=== PATIENT | male | born 1995 | race Caucasian/White ===

== ENCOUNTER 2017-02-16 16:27 | Emergency (ER) | payer MEDICAID ==
[2017-02-16 17:03] VITALS: TEMP 98.8
--- NOTE | 2017-02-16 17:46 | RAD ---
HISTORY: Detox/Psy COMPARISON: None available. TECHNIQUE: Chest, one view. FINDINGS: Examination limited by habitus and hypoinflation. The patient's chin obscures evaluation of the lung apices. LUNGS: No focal consolidation. Please note that chest x-ray has limited sensitivity for the detection of pulmonary masses. PLEURA: No significant pleural effusion identified. No definite pneumothorax . CARDIOVASCULAR: Cardiomegaly, likely exaggerated by hypoinflation. OSSEOUS STRUCTURES: No acute osseous abnormality identified. VISUALIZED UPPER ABDOMEN: Elevation of the right hemidiaphragm. OTHER FINDINGS: None. IMPRESSION: Cardiomegaly, likely exaggerated by hypoinflation.
[2017-02-16 18:02] LABS: RBC URINE 6 /hpf (0-3); URINE BACTERIA RARE (<OCC); URINE BILIRUBIN NEGATIVE (NEGATIVE); URINE BLOOD NEGATIVE (NEGATIVE); URINE COLOR Yellow (YELLOW); URINE GLUCOSE (UA) NORMAL (Normal); URINE KETONE NEGATIVE (NEGATIVE); URINE LEUKOCYTE ESTERASE NEG Leu/uL (Negative); URINE PROTEIN NEGATIVE (NEGATIVE); URINE UROBILINOGEN NORMAL mg/dL (0.2-1.0); WBC URINE 1 /hpf (0-5)
[2017-02-16 18:05] LABS: BASO # 0.1 K/uL (0.0-0.2); BASO % 0.5 % (0.0-2.0); EOS # 0.7 K/uL (0.0-0.7); EOS % 6.9 % (0.0-4.0); HEMATOCRIT 43.8 % (35.0-51.0); LYMPH # 2.6 K/uL (1.0-4.3); LYMPH % 24.6 % (20.0-40.0); MEAN CELL VOLUME 92.2 fL (80.0-94.0); MEAN CORPUSCULAR HEMOGLOBIN 31.5 pg (27.0-31.0); MEAN CORPUSCULAR HGB CONC 34.1 g/dL (33.0-37.0); MEAN PLATELET VOLUME 8.4 fL (7.2-11.7); MONO # 0.9 K/uL (0.0-0.8); MONO % 8.7 % (0.0-10.0); RED CELL DISTRIBUTION WIDTH 13.6 % (11.5-14.5); WHITE BLOOD COUNT 10.6 K/uL (4.8-10.8)
[2017-02-16 18:28] LABS: CHLORIDE 101 mmol/L (98-107)
[2017-02-16 18:29] LABS: POTASSIUM 3.5 mmol/L (3.6-5.2); SODIUM 140 mmol/L (132-148)
[2017-02-16 18:31] LABS: ALB/GLOB RATIO 1.3 (1.0-2.1); ALKALINE PHOSPHATASE 97 U/L (38-126); AST/SGOT 44 U/L (17-59); BILIRUBIN,TOTAL 0.5 mg/dL (0.2-1.3); BLOOD UREA NITROGEN 18 mg/dL (9-20); CARBON DIOXIDE 23 mmol/L (22-30); GFR AFRICAN-AMERICAN > 60; TOTAL PROTEIN 7.5 g/dL (6.3-8.3)
[2017-02-16 18:32] LABS: ALCOHOL SERUM < 10 mg/dl (0-10); ALT/SGPT 45 U/L (21-72); CALCIUM 8.8 mg/dl (8.6-10.4); GLUCOSE,RANDOM 91 mg/dL (75-110)
--- NOTE | 2017-02-16 18:34 | C.PDOC ---
History Of Present Illness 21 yr old male with PMHx of Asperger syndrome, presents to the ER feeling homicidal. Patient states he called 911 and told them he killed someone but currently in ED states he did not kill anyone. Patient states he feels hateful and was effected by a violent television show. Currently patient states there is one individual who irritates him and wants to hurt him. Patient denies fever , chest pain, SOB, nausea, vomiting, headache, weakness or numbness. Patient currently denies suicidal ideation but has had suicidal ideation in the past. Time Seen by Provider: 02/16/17 16:32 Chief Complaint (Nursing): Psychiatric Evaluation History Per: Patient History/Exam Limitations: no limitations Onset/Duration Of Symptoms: Days Past Medical History Reviewed: Historical Data, Nursing Documentation, Vital Signs Vital Signs: Last Vital Signs Temp 98.8 F 02/16/17 16:35 Pulse 83 02/16/17 16:35 Resp 20 02/16/17 16:35 BP 125/78 02/16/17 16:35 Pulse Ox 95 02/16/17 18:36 - Medical History PMH: Anxiety (from previous triage), Bipolar Disorder (from previous triage), Depression (from previous triage), Schizophrenia (from previous triage) - [facility] Procedures GROUP PSYCHOTHERAPY (06/09/16) INDIVID PSYCHOTHERAP NEC (04/19/15) INDIVIDUAL PSYCHOTHERAPY, SUPPORTIVE (06/09/16) OTHER GROUP THERAPY (04/19/15) Family History: States: No Known Family Hx - Social History Hx Tobacco Use: No Hx Alcohol Use: No Hx Substance Use: No - Immunization History Hx Tetanus Toxoid Vaccination: No Hx Influenza Vaccination: No Hx Pneumococcal Vaccination: No Review Of Systems Except As Marked, All Systems Reviewed And Found Negative. Constitutional: Negative for: Fever Cardiovascular: Negative for: Chest Pain Respiratory: Negative for: Shortness of Breath Gastrointestinal: Negative for: Nausea, Vomiting Neurological: Negative for: Weakness, Numbness, Headache Psych: Positive for: Other (Feels hateful). Negative for: Suicidal ideation Physical Exam - Physical Exam Appears: Well, Non-toxic, No Acute Distress, Other (Patient is in bed staring) Skin: Warm, Dry, No Rash Head: Atraumatic, Normacephalic Eye(s): bilateral: Normal Inspection, PERRL, EOMI Oral Mucosa: Moist Chest: Symmetrical, No Tenderness Cardiovascular: Rhythm Regular, No Murmur Respiratory: Normal Breath Sounds, No Rales, No Rhonchi, No Stridor, No Wheezing Extremity: Normal ROM, No Swelling Neurological/Psych: Oriented x3, Normal Speech, Normal Motor ED Course And Treatment - Laboratory Results Result Diagrams: 02/16/17 17:58 02/16/17 17:58 O2 Sat by Pulse Oximetry: 95 - Other Rad CXR X-Ray: Viewed By Me, Read By Radiologist Interpretation: HISTORY: Detox/Psy. COMPARISON: None available. TECHNIQUE: Chest, one view. FINDINGS: Examination limited by habitus and hypoinflation. The patient's chin obscures evaluation of the lung apices. LUNGS: No focal consolidation. Please note that chest x-ray has limited sensitivity for the detection of pulmonary masses. PLEURA: No significant pleural effusion identified. No definite pneumothorax . CARDIOVASCULAR: Cardiomegaly, likely exaggerated by hypoinflation. OSSEOUS STRUCTURES: No acute osseous abnormality identified. VISUALIZED UPPER ABDOMEN: Elevation of the right hemidiaphragm. OTHER FINDINGS: None. IMPRESSION: Cardiomegaly, likely exaggerated by hypoinflation. Medical Decision Making Medical Decision Making: PLAN: * CXR * EKG * Alcohol Serum * Drug Screen * Urinalysis Disposition Counseled Patient/Family Regarding: Studies Performed - Disposition Disposition Time: 19:23 Condition: GUARDED - Clinical Impression Clinical Impression: Asperger's disorder - Scribe Statement The provider has reviewed the documentation as recorded by the Janelibsherley Yanez Provider Attestation: All medical record entries made by the Scribe were at my direction and personally dictated by me. I have reviewed the chart and agree that the record accurately reflects my personal performance of the history, physical exam, medical decision making, and the department course for this patient. I have also personally directed, reviewed, and agree with the discharge instructions and disposition. Physician Patient Turnover Patient Signed Over To: Shayne Braun Handoff Comments: patient with aspergers, pending crisis eval and final dispo
[2017-02-16 19:37] VITALS: BP 132/78; PULSE 84; RESP 16; O2SAT 98
== END 2017-02-16 19:36 | disposition home or self-care (01) ==
LOC: C.ER 16:27
DX: F84.5 Asperger's syndrome (principal); F20.9 Schizophrenia, unspecified

== ENCOUNTER 2017-05-13 10:16 | Inpatient (IN) | payer MEDICAID ==
--- NOTE | 2017-05-13 10:37 | C.PDOC ---
History Of Present Illness Patient is a 21 y/o M with hx of depression, on medication and in outpatient therapy, presenting with depression and suicidal ideation. He denies somatic complaints. Time Seen by Provider: 05/13/17 10:19 Chief Complaint (Nursing): Psychiatric Evaluation Past Medical History Vital Signs: Last Vital Signs Temp 99.0 F 05/13/17 10:20 Pulse 92 H 05/13/17 10:20 Resp 18 05/13/17 10:20 BP 132/76 05/13/17 10:20 Pulse Ox 99 05/13/17 11:30 - Medical History PMH: Anxiety, Depression Denies: Diabetes, Hepatitis, HIV, HTN, Seizures, Sexually Transmitted Disease Family History: States: Unknown Family Hx - Social History Hx Alcohol Use: No Hx Substance Use: No Review Of Systems Constitutional: Negative for: Fever, Chills Cardiovascular: Negative for: Chest Pain Respiratory: Negative for: Cough, Shortness of Breath Gastrointestinal: Negative for: Nausea, Vomiting, Abdominal Pain, Diarrhea Skin: Negative for: Rash Neurological: Negative for: Weakness, Numbness, Altered Mental Status, Headache Psych: Positive for: Depression, Suicidal ideation. Negative for: Withdrawal Physical Exam - Physical Exam Appears: Well, Non-toxic, No Acute Distress Skin: Normal Color, Warm, Dry Head: Atraumatic, Normacephalic Eye(s): bilateral: Normal Inspection, PERRL, EOMI Cardiovascular: Rhythm Regular Respiratory: Normal Breath Sounds, No Rales, No Rhonchi, No Wheezing Gastrointestinal/Abdominal: Soft, No Tenderness, No Mass, No Distention Back: Normal Inspection Extremity: Normal ROM Neurological/Psych: Oriented x3, Normal Cranial Nerves, Normal Motor Gait: Steady ED Course And Treatment - Laboratory Results Result Diagrams: 05/13/17 10:57 05/13/17 10:57 O2 Sat by Pulse Oximetry: 99 Medical Decision Making Medical Decision Making: Patient evaluated by behavioral health worker Maximilian. Patient does not need to be on 1:1 monitoring in ED. Will get ekg, xrays and labs to medically clear for psychiatric admission 11:27 EKG shows NSR at 69bpm with incomplete RBBB (no prior for comparison). Cxray shows left basilar subsegmental atelectasis and borderline cardiomegaly. Labs grossly normal. UA shows hematuria, which patient has history of, and needs outpatient follow-up. Medically cleared for acute issues for psychiatric admission Patient accepted by Dr. Motta Disposition - Disposition Disposition: HOSPITALIZED Disposition Time: 11:29 Condition: GOOD - Clinical Impression Clinical Impression: Hematuria, Depression
[2017-05-13 11:02] LABS: BASO # 0.1 K/uL (0.0-0.2); EOS # 0.3 K/uL (0.0-0.7); EOS % 3.1 % (0.0-4.0); HEMATOCRIT 45.3 % (35.0-51.0); LYMPH % 24.3 % (20.0-40.0); MEAN CELL VOLUME 91.4 fL (80.0-94.0); MEAN CORPUSCULAR HEMOGLOBIN 31.9 pg (27.0-31.0); MEAN CORPUSCULAR HGB CONC 34.9 g/dL (33.0-37.0); MEAN PLATELET VOLUME 8.7 fL (7.2-11.7); MONO # 0.7 K/uL (0.0-0.8); RED CELL DISTRIBUTION WIDTH 12.8 % (11.5-14.5); WHITE BLOOD COUNT 8.2 K/uL (4.8-10.8)
--- NOTE | 2017-05-13 11:02 | RAD ---
HISTORY: psych COMPARISON: None available TECHNIQUE: Chest, one view. FINDINGS: Examination limited by habitus. LUNGS: Left basilar subsegmental atelectasis. Please note that chest x-ray has limited sensitivity for the detection of pulmonary masses. PLEURA: No significant pleural effusion identified. No definite pneumothorax . CARDIOVASCULAR: Borderline cardiomegaly. OSSEOUS STRUCTURES: No acute osseous abnormality identified. VISUALIZED UPPER ABDOMEN: Unremarkable. OTHER FINDINGS: None. IMPRESSION: Left basilar subsegmental atelectasis. Borderline cardiomegaly.
[2017-05-13 11:08] LABS: RBC URINE 2 /hpf (0-3); URINE BILIRUBIN NEGATIVE (NEGATIVE); URINE BLOOD 1+ (NEGATIVE); URINE COLOR Yellow (YELLOW); URINE GLUCOSE (UA) NORMAL (Normal); URINE KETONE NEGATIVE (NEGATIVE); URINE LEUKOCYTE ESTERASE NEG Leu/uL (Negative); URINE PROTEIN NEGATIVE (NEGATIVE); URINE UROBILINOGEN NORMAL mg/dL (0.2-1.0); WBC URINE < 1 /hpf (0-5)
[2017-05-13 11:15] LABS: CHLORIDE 99 mmol/L (98-107); SODIUM 141 mmol/L (132-148)
[2017-05-13 11:17] LABS: GFR AFRICAN-AMERICAN > 60
[2017-05-13 11:18] LABS: ALB/GLOB RATIO 1.2 (1.0-2.1); ALKALINE PHOSPHATASE 98 U/L (38-126); ALT/SGPT 61 U/L (21-72); AST/SGOT 29 U/L (17-59); BILIRUBIN,TOTAL 0.5 mg/dL (0.2-1.3); BLOOD UREA NITROGEN 13 mg/dL (9-20); CALCIUM 9.7 mg/dl (8.6-10.4); CARBON DIOXIDE 24 mmol/L (22-30); GLUCOSE,RANDOM 89 mg/dL (75-110); TOTAL PROTEIN 8.1 g/dL (6.3-8.3)
[2017-05-13 11:19] LABS: ALCOHOL SERUM < 10 mg/dl (0-10)
--- NOTE | 2017-05-13 13:27 | PCM.BM ---
Addendum entered and electronically signed by Michelle Eng 05/14/17 11:43: Family Contact Family involvement: Family/SO is involved Family contact: Patient agrees to contact Family contact name: Mother-Aileen Nicole - Outside Agency Agency 1 Care involvment: Following patient during stay, Information-sharing Agency contact name: [facility] contact number: - Goals for Treatment Patient goals for treatment: "I want to go back to my outpatient program." Original Note: <Henrietta Rivers - Last Filed: 05/13/17 13:24> Treatment Plan Problems - Problems identified on initial assessmt Problem 1 Date Initiated: 05/13/17 Time Initiated: 13:25 Suicidal Ideation Date Initiated: 05/13/17 Time Initiated: 13:26 Assessment reference: NA Status: Monitor Priority: 1 Depression Date Initiated: 05/13/17 Time Initiated: 13:27 Assessment reference: NA Status: Active Priority: 2 <Andrez Motta - Last Filed: 05/14/17 11:36> - Diagnosis (1) Depression Status: Acute Interventions: 05/14/17 11:36 Attend groups Take meds (2) Autism spectrum disorder Status: Acute Interventions: 05/14/17 11:38 Attend groups Take meds <Michelle Eng - Last Filed: 05/14/17 11:41> Discharge/Continuing Care - Education Needs Education Needs: Patient Medication, Patient Coping Skills - Discharge Discharge Criteria: Tolerates medication w/o severe side effects, Free of Suicidal thoughts <Suzy Acevedo - Last Filed: 05/15/17 11:04> Treatment assets and liabiliti Patient Assests: adapts well, cooperative Patient Liabilities: language/speech, other (Patients program has limited Yoruba.) - Milieu Protocol Maintain good personal hygiene: daily Encourage regular showers, daily Remind patient to perform daily oral care Maintain personal safety: daily Educate patient to report safety concerns to staff, daily Monitor environment for contraband/sharps Medication safety: Monitor for expected outcome, potential side effects: daily, Assess barriers to learning: daily
--- NOTE | 2017-05-14 11:34 | PCM.PSYCH ---
Initial Psychiatric Evaluation - Initial Psychiatric Evaluation Type of Admission: Voluntary Legal Status: Capacity Chief Complaint (in patient's own words): "I had suicidal thoughts" History of Present Illness and Precipitating Events: This is a 21 year old male, single, no children, unemployed, currently living with his mother in [place], [place]. Patient presented reporting he was feeling anxious and had suicidal thoughts. Patient attends a partial day program at [facility], where he participates in a [place]-only group. Patient states he was told yesterday that the [place] only group would end due to staffing changes. Patient states he began to feel depressed and sought out his psychiatrist at [facility]. Patient states that his psychiatrist was out of the office and became very depressed and anxious. Patient reports that he then began having suicidal thoughts and called for help. patient has a history of learning disorder/autistic spectrum disorder. He appeared depressed, a bit disorganized and internally preoccupied. He reports poor sleep and poor appetite. However he denies any auditory or visual hallucinations or any delusions. Denies any drinking or any substance abuse. Patient approved staff to speak to his mother, during treatment team. Patient is open to returning to [facility] to attend the [place]-only group. Past MedHx: denies Past PsychHx: Depression, Anxiety, Schizophrenia Past Substance Use: denies Hospitalization: [place] 1 year ago Alcohol: denies Allergies: NKDA Current Medications: Active Medications Generic Name Dose Route Start Last Admin Trade Name Freq PRN Reason Stop Dose Admin Acetaminophen 650 mg 05/13/17 18:57 Tylenol 325mg Tab PO Q6 PRN Fever >100.4 F Benztropine Mesylate 2 mg 05/13/17 18:57 Cogentin PO Q6 PRN Extra Pyramidal Symptoms Diphenhydramine HCl 50 mg 05/13/17 18:57 Benadryl PO Q6 PRN Extra Pyramidal Symptoms Haloperidol 5 mg 05/13/17 18:57 Haldol PO Q8 PRN Moderate Agitation Hydroxyzine HCl 25 mg 05/13/17 18:58 Atarax PO Q6 PRN Agitation Pneumococcal Polyvalent Vaccine 0.5 ml 05/15/17 13:06 Pneumovax 23 Vaccine SC 05/15/17 13:07 .ONCE ONE Trazodone HCl 50 mg 05/13/17 21:29 Desyrel PO HS PRN Insomnia Past Psychiatric History - Past Psychiatric History Previous Treatment History: None Pertinent Medical Hx (Current Medical&Sleep Prob, Allergies): Allergies Allergy/AdvReac Type Severity Reaction Status Date / Time No Known Allergies Allergy Verified 04/29/17 16:01 Risperdal 09/04/15 Zoloft 09/04/15 Review of Systems - Review of Systems All systems: reviewed and no additional remarkable complaints except - Psychiatric Psychiatric: Anxiety, Depression, Irritability, Suicidal Ideation Mental Status Examination - Personal Presentation Personal Presentation: Looks stated age - Affect Affect: Constricted, Depressed - Motor Activity Motor Activity: Calm - Reliability in Providing Information Reliability in Providing Information: Good - Speech Speech: Disorganized - Mood Mood: Depressed, Anxious - Formal Thought Process Formal Thought Process: No Impairment - Obsessions/Compulsions Obsessions: No Compulsions: No - Cognitive Functions Orientation: Person, Place, Situation, Time Sensorium: Alert Attention/Concentration: Attentive Abstract Thinking: [place] Estimate of Intelligence: Below average Judgement: Imparied, as evidence by: Poor judgement, Imparied, as evidence by: Lack of insight into illness - Risk Risk: Suicidal, Diminished functioning - Strength & Assets Inventory Strength & Assets Inventory: Family support DSM 5 DX - DSM 5 DSM 5 Diagnosis: Major depressive disorder recurrent severe without psychotic features Autism spectrum disorder - Recommended/Plan of Treatment Treatment Recommendations and Plan of Treatment: Depression: CBT Psychoeducation Supportive therapy, group therapy, individual therapy Zoloft 50 mg daily Neurontin 100 mg by mouth 3 times a day Trazodone 50 mg by mouth daily at bedtime Learning disorder: Supportive therapy, group therapy, individual therapy - Smoking Cessation Smoking Cessation Initiated: No
[2017-05-15] MEDS ORDERED: Pneumococcal 23-Valent Vaccine SC ONE (13:06)
--- NOTE | 2017-05-15 14:39 | PCM.PYCHPN ---
Psychiatric Progress Note - Psychiatric Progress Note Patient seen today, length of contact: 17 min Patient Chief Complaint: "I had suicidal thoughts" Problems Identified/Issues Discussed: Patient seen and evaluated, chart reviewed and discussed with the nurse. Patient remained depressed and isolated. He reports depressed mood and poor sleep. He still appears a bit disorganized and internally preoccupied because of the learning disorder. He is taking medications and denies any side effects. Supportive therapy and psychoeducation were given. Medication Change: Yes (start abilify) Medical Record Reviewed: Yes Mental Status Examination - Cognitive Function Orientation: Person, Place, Situation, Time Memory: Intact Attention: WNL Concentration: Poor Association: WNL Fund of Knowledge: Poor - Mood Mood: Depressed, Anxious - Affect Affect: Constricted, Depressed - Speech Speech: Soft - Formal Thought Process Formal Thought Process: No Impairment - Suicidal Ideation Suicidal Ideation: No - Homicidal Ideation Homicidal Ideation: No Goal/Treatment Plan - Goal/Treatment Plan Need for Continued Stay: Discharge may exacerbated symptoms, Severe functional impairment Progress Toward Problem(s) and Goals/Treatment Plan: Depression: CBT Psychoeducation Supportive therapy, group therapy, individual therapy Zoloft 50 mg daily Start Abilify 5 mg PO QHS Neurontin 100 mg by mouth 3 times a day Trazodone 50 mg by mouth daily at bedtime Learning disorder: Supportive therapy, group therapy, individual therapy - Smoking Cessation Smoking Cessation Initiated: No
--- NOTE | 2017-05-16 11:41 | PCM.PYCHPN ---
Psychiatric Progress Note - Psychiatric Progress Note Patient seen today, length of contact: 17 min Patient Chief Complaint: "I am feeling little better." Problems Identified/Issues Discussed: Patient seen and evaluated, chart reviewed and discussed with the nurse. As per the staff, pt remained depressed, and isolated. He appears more organized than before. He still reports depressed mood and reports improvement in hi sleep. He is taking medications and denies any side effects. Supportive therapy and psychoeducation were given. Medication Change: Yes (increase abilify) Medical Record Reviewed: Yes Mental Status Examination - Cognitive Function Orientation: Person, Place, Situation, Time Memory: Intact Attention: WNL Concentration: Poor Association: Loose Fund of Knowledge: Poor - Mood Mood: Depressed, Anxious - Affect Affect: Constricted, Depressed - Speech Speech: Soft - Formal Thought Process Formal Thought Process: Delusions, Loosening of associations - Suicidal Ideation Suicidal Ideation: No - Homicidal Ideation Homicidal Ideation: No Goal/Treatment Plan - Goal/Treatment Plan Need for Continued Stay: Discharge may exacerbated symptoms, Severe functional impairment Progress Toward Problem(s) and Goals/Treatment Plan: Depression: CBT Psychoeducation Supportive therapy, group therapy, individual therapy Zoloft 100 mg daily Neurontin 100 mg by mouth 3 times a day Trazodone 50 mg by mouth daily at bedtime Abilify 10 mg PO QHS Learning disorder: Supportive therapy, group therapy, individual therapy - Smoking Cessation Smoking Cessation Initiated: No
--- NOTE | 2017-05-16 13:09 | CARD ---
APPROVED REPORT EKG Measurement Heart [id number] <Conclusion> Normal sinus rhythm Incomplete right bundle branch block Borderline ECG
[2017-05-17 17:54] VITALS: O2SAT 103
--- NOTE | 2017-05-17 22:34 | PCM.PYCHPN ---
Psychiatric Progress Note - Psychiatric Progress Note Patient seen today, length of contact: 17 min Patient Chief Complaint: "I am feeling little better." Problems Identified/Issues Discussed: Patient seen and evaluated, chart reviewed and discussed with the nurse. As per the staff, pt remained depressed, and isolated. He appears more organized than before. He had no new issues. He still reports depressed mood. He reported that he is compliant with medication and denied s/e. He denied SI, HI, intent or plan. He start attending groups. Medical Problems: None reported Diagnostic Results: Major depressive disorder DSM 5 Symptoms Update: MDD Medication Change: No Medical Record Reviewed: Yes Mental Status Examination - Cognitive Function Orientation: Person, Place, Situation, Time Memory: Intact Attention: WNL Concentration: Poor Association: WNL Fund of Knowledge: WNL - Mood Mood: Depressed - Affect Affect: Constricted, Depressed - Speech Speech: Soft - Formal Thought Process Formal Thought Process: No Impairment - Suicidal Ideation Suicidal Ideation: No - Homicidal Ideation Homicidal Ideation: No Goal/Treatment Plan - Goal/Treatment Plan Need for Continued Stay: Discharge may exacerbated symptoms, Severe functional impairment Progress Toward Problem(s) and Goals/Treatment Plan: Continue treatment plan and management as per primary team Therapy in milieu - Smoking Cessation Smoking Cessation Initiated: No
--- NOTE | 2017-05-18 19:21 | PCM.PYCHPN ---
Psychiatric Progress Note - Psychiatric Progress Note Patient seen today, length of contact: 17 min Patient Chief Complaint: "I am feeling better." Problems Identified/Issues Discussed: Patient seen and evaluated, chart reviewed and discussed with the nurse. As per the staff, pt remained depressed, and isolated. He had no new issues. He appears more organized than before. He reported that he is feeling better. He reported that he is compliant with medication and denied s/e. He denied SI, HI, intent or plan. He start attending groups. Medical Problems: None reported Diagnostic Results: Major depressive disorder Medication Change: No Medical Record Reviewed: Yes Mental Status Examination - Cognitive Function Orientation: Person, Place, Situation, Time Memory: Intact Attention: WNL Concentration: Poor Association: WNL Fund of Knowledge: WNL - Mood Additional comments: "I'm feeling better" - Affect Affect: Constricted, Depressed - Speech Speech: Soft - Formal Thought Process Formal Thought Process: No Impairment - Suicidal Ideation Suicidal Ideation: No - Homicidal Ideation Homicidal Ideation: No Goal/Treatment Plan - Goal/Treatment Plan Need for Continued Stay: Discharge may exacerbated symptoms, Severe functional impairment Progress Toward Problem(s) and Goals/Treatment Plan: Continue treatment plan and management as per primary team Therapy in milieu Encouraged to attend group
[2017-05-19 09:47] VITALS: RESP 19
--- NOTE | 2017-05-19 14:53 | PCM.PYCHPN ---
Psychiatric Progress Note - Psychiatric Progress Note Patient seen today, length of contact: 17 min Patient Chief Complaint: "I am feeling much better." Problems Identified/Issues Discussed: Patient seen and evaluated, chart reviewed and discussed with the nurse. The patient reports improvement in his mood and denies any feelings of hopelessness and helplessness. He reports improvement in his sleep, but he remained isolated and continued to pace back and forth in the hallways. The pt is compliant with medications and denies any side-effects. Symptoms are improving but needs more time to stabilize. After care discussed, support and psychoeducation given. Medication Change: No Medical Record Reviewed: Yes Mental Status Examination - Cognitive Function Orientation: Person, Place, Situation, Time Memory: Intact Attention: WNL Concentration: Poor Association: WNL Fund of Knowledge: WNL - Mood Mood: Depressed - Affect Affect: Constricted, Depressed - Speech Speech: Soft - Formal Thought Process Formal Thought Process: No Impairment - Suicidal Ideation Suicidal Ideation: No - Homicidal Ideation Homicidal Ideation: No Goal/Treatment Plan - Goal/Treatment Plan Need for Continued Stay: Discharge may exacerbated symptoms, Severe functional impairment Progress Toward Problem(s) and Goals/Treatment Plan: Depression: CBT Psychoeducation Supportive therapy, group therapy, individual therapy Zoloft 100 mg daily Neurontin 100 mg by mouth 3 times a day Trazodone 50 mg by mouth daily at bedtime Abilify 10 mg PO QHS Learning disorder: Supportive therapy, group therapy, individual therapy - Smoking Cessation Smoking Cessation Initiated: No
[2017-05-20 08:14] VITALS: BP 124/67; PULSE 78; TEMP 98.1
--- NOTE | 2017-05-20 09:52 | PCM.PYCHDC ---
Mental Status Examination - Mental Status Examination Orientation: Person, Place, Situation, Time Memory: Intact Mood: Neutral Affect: Constricted Speech: Soft Attention: WNL Concentration: WNL Association: WNL Fund of Knowledge: WNL Formal Thought Process: No Impairment Description of patient's judgement and insight: Good, fair Psychotic Thoughts and Behaviors: Denies any AVH Suicidal Ideation: No Current Homicidal Ideation?: No Discharge Summary - Discharge Note Reason for Hospitalization: This is a 21 year old male, single, no children, unemployed, currently living with his mother in [place], [place]. Patient presented reporting he was feeling anxious and had suicidal thoughts. Patient attends a partial day program at [facility], where he participates in a [place]-only group. Patient states he was told yesterday that the [place] only group would end due to staffing changes. Patient states he began to feel depressed and sought out his psychiatrist at [facility]. Patient states that his psychiatrist was out of the office and became very depressed and anxious. Patient reports that he then began having suicidal thoughts and called for help. patient has a history of learning disorder/autistic spectrum disorder. He appeared depressed, a bit disorganized and internally preoccupied. He reports poor sleep and poor appetite. However he denies any auditory or visual hallucinations or any delusions. Denies any drinking or any substance abuse. Patient approved staff to speak to his mother, during treatment team. Patient is open to returning to [facility] to attend the [place]-only group. Consultations:: List each consultation separately and include: 1. Reason for request. 2. Findings. 3. Follow-up Summary of Hospital Course include:: 1. Description of specific treatment plan utilized for patients during their course of treatmen. 2. Summarize the time- course for resolution of acute symptoms and/or regressed behaviors. 3. Describe issues identified and worked on during hospitalization. 4. Describe medication utilized. 5. Describe medical problems identified and treated. 6. Reassessment of suicide risk Summary of Hospital Course: During the course of his stay, patient (pt) started progressively improving and he no longer remained irritable, depressed, and suicidal. His mood was improved and he started attending groups and meetings and started socializing. Patient denied any feelings of hopelessness, helplessness, and worthlessness, denied any problem with the sleep or appetite, denied suicidal ideation or homicidal ideation. Pt denied any auditory or visual hallucinations. Some changes were made in his current medications and patient was discharged on following medications. He tolerated these medications very well and denied any side effects. - Diagnosis (1) Depression Status: Acute (2) Autism spectrum disorder Status: Acute - Final Diagnosis (DSM 5) Condition upon Discharge: GOOD DSM 5: Major depressive disorder recurrent severe without psychotic features Autism spectrum disorder Disposition: HOME/ ROUTINE Follow-up Treatment Plan: Education: Pt was educated and counseled about the risks and benefits of taking and not taking medications. Pt was educated and counseled about the risks of drinking and abusing drugs. Pt was educated and counseled to go to the ER or call 911 if pt develop suicidal ideation or homicidal ideation, worsening of symptoms or severe side effects of the meds. Prescriptions/Medication Reconciliation: ARIPiprazole [Abilify] 10 mg PO HS #30 tab hydrOXYzine HCl [Atarax] 25 mg PO TID #90 tab Sertraline [Zoloft] 100 mg PO DAILY #30 tab traZODone [Desyrel] 50 mg PO HS PRN #30 tab PRN Reason: Insomnia - Smoking Cessation Smoking Cessation Medication prescribed: No - Antipsychotic Medications Pt discharged on 2 or more routine antipsychotic medications: No
== END 2017-05-20 11:15 | disposition home or self-care (01) | DRG 430 ==
LOC: C.ER 10:16 → MERGE 11:37 → C.5E 11:37
PROVIDERS: ADMIT Psychiatry & Neurology Psychiatry; ATTEND Psychiatry & Neurology Psychiatry
PROC: GZ3ZZZZ Medication Management (ICD-10-PCS; principal; 2017-05-13)
PROC: GZHZZZZ Group Psychotherapy (ICD-10-PCS; 2017-05-13)
PROC: GZ56ZZZ Individual Psychotherapy, Supportive (ICD-10-PCS; 2017-05-13)
DX: F33.2 Major depressive disorder, recurrent severe without psychotic features (principal); R45.851 Suicidal ideations; F84.0 Autistic disorder; R31.9 Hematuria, unspecified; F81.9 Developmental disorder of scholastic skills, unspecified

== ENCOUNTER 2018-12-12 18:55 | Emergency (ER) | payer MEDICAID ==
--- NOTE | 2018-12-12 19:39 | C.PDOC ---
History Of Present Illness 23 y/o M c PMHx autism p/w feeling depressed and anxious. Mother stated patient has been angry. Denies fever, chills, chest pain, dyspnea, nausea, vomiting, SI/HI/hallucinations. Time Seen by Provider: 12/12/18 19:12 Chief Complaint (Nursing): Psychiatric Evaluation Past Medical History Vital Signs: Last Vital Signs Temp 99.1 F 12/12/18 18:57 Pulse 88 12/12/18 19:37 Resp 16 12/12/18 19:37 BP 146/88 12/12/18 19:37 Pulse Ox 95 12/12/18 19:37 - Medical History PMH: Anxiety (from previous triage), Bipolar Disorder (from previous triage), Depression (from previous triage), Schizophrenia (from previous triage) Denies: Diabetes, Hepatitis, HIV, HTN, Chronic Kidney Disease, Seizures, Sexually Transmitted Disease - [facility] Procedures GROUP PSYCHOTHERAPY (05/13/17) INDIVID PSYCHOTHERAP NEC (04/19/15) INDIVIDUAL PSYCHOTHERAPY, SUPPORTIVE (05/13/17) MEDICATION MANAGEMENT (05/13/17) OTHER GROUP THERAPY (04/19/15) Family History: States: Unknown Family Hx - Social History Hx Tobacco Use: No Hx Alcohol Use: No Hx Substance Use: No - Immunization History Hx Tetanus Toxoid Vaccination: No Hx Influenza Vaccination: No Hx Pneumococcal Vaccination: No Review Of Systems Except As Marked, All Systems Reviewed And Found Negative. Constitutional: Negative for: Fever Cardiovascular: Negative for: Chest Pain Physical Exam - Physical Exam Additional Physical Exam Comments: Constitutional: No acute distress. Head: Normocephalic. Atraumatic. Eyes: PERRL. ENT: Moist mucous membranes. Neck: Supple. Cardiovascular: Regular rate. Radial pulse 2+ bilaterally. Chest: No tenderness. Respiratory: Clear to auscultation bilaterally. GI: Soft. Nontender. Nondistended. Back: No CVA tenderness. Musculoskeletal: No tenderness or swelling of extremities. Skin: No rash. Neurologic: Alert, no focal deficit. ED Course And Treatment - Laboratory Results Result Diagrams: 12/12/18 19:53 12/12/18 19:53 O2 Sat by Pulse Oximetry: 95 Medical Decision Making Medical Decision Making: Medically clear. Seen by Crisis, given resources. Discharged home, return to ED for any SI/HI/hallucinations. Disposition - Disposition Referrals: Anisa Christensen MD [Staff Provider] - Disposition: HOME/ ROUTINE Disposition Time: 21:21 Condition: STABLE Instructions: Depression Forms: [employer] (Serbian) - Clinical Impression Clinical Impression: Depression, Autism
[2018-12-12 19:56] LABS: BASO # 0.1 K/uL (0.0-0.2); BASO % 1.1 % (0.0-2.0); EOS # 0.6 K/uL (0.0-0.7); EOS % 6.7 % (0.0-4.0); HEMOGLOBIN 15.9 g/dL (12.0-18.0); LYMPH % 22.1 % (20.0-40.0); MEAN CELL VOLUME 93.6 fL (80.0-94.0); MEAN CORPUSCULAR HEMOGLOBIN 32.2 pg (27.0-31.0); MEAN CORPUSCULAR HGB CONC 34.4 g/dL (33.0-37.0); MEAN PLATELET VOLUME 8.4 fL (7.2-11.7); MONO % 10.7 % (0.0-10.0); NEUT # 5.4 K/uL (1.8-7.0); NEUT % 59.4 % (50.0-75.0); RBC 4.95 Mil/uL (4.40-5.90); WHITE BLOOD COUNT 9.1 K/uL (4.8-10.8)
[2018-12-12 19:59] LABS: URINE BILIRUBIN NEGATIVE (NEGATIVE); URINE BLOOD 1+ (NEGATIVE); URINE CLARITY Clear (Clear); URINE COLOR Yellow (YELLOW); URINE GLUCOSE (UA) NORMAL (Normal); URINE LEUKOCYTE ESTERASE NEG Leu/uL (Negative); URINE PROTEIN NEGATIVE (NEGATIVE); URINE UROBILINOGEN NORMAL mg/dL (0.2-1.0)
[2018-12-12 20:08] LABS: ALB/GLOB RATIO 1.4 (1.0-2.1); ALBUMIN 4.8 g/dL (3.5-5.0); ALT/SGPT 46 U/L (21-72); AST/SGOT 27 U/L (17-59); BLOOD UREA NITROGEN 10 mg/dL (9-20); CALCIUM 9.4 mg/dl (8.6-10.4); GFR NON-AFRICAN AMERICAN > 60
[2018-12-12 20:12] LABS: BARBITURATES, UR NEGATIVE (NEGATIVE); BENZODIAZEPINES, UR NEGATIVE (NEGATIVE); OPIATES, UR NEGATIVE (NEGATIVE); PHENCYCLIDINE, UR NEGATIVE (NEGATIVE)
[2018-12-12 21:27] VITALS: BP 138/78; PULSE 89; RESP 18; TEMP 98.2; O2SAT 98
== END 2018-12-12 21:27 | disposition home or self-care (01) ==
LOC: C.ER 18:55
DX: F32.9 Major depressive disorder, single episode, unspecified (principal); F84.0 Autistic disorder

== ENCOUNTER 2019-02-12 22:08 | Emergency (ER) | payer MEDICAID | END 2019-02-12 23:50 | disposition left against medical advice (07) | LOC: C.ER 22:08 | DX: Z02.89 Encounter for other administrative examinations (principal) ==